=== PATIENT | female | born 1945 | race Caucasian/White ===

== ENCOUNTER 2023-09-23 13:21 | Outpatient (CLI) | payer MEDICARE, OTHER, SELFPAY | END 2023-09-23 13:22 | disposition home or self-care (01) | LOC: INJ CL 13:27 | PROVIDERS: PCP Internal Medicine; Visit Provider Family Medicine | DX: M54.16 Radiculopathy, lumbar region (principal); M51.36 Other intervertebral disc degeneration, lumbar region | CPT/HCPCS: 62323; J0702; Q9966 ==

== ENCOUNTER 2023-10-28 09:36 | Outpatient (CLI) | payer MEDICARE, OTHER, SELFPAY | END 2023-10-28 09:37 | disposition home or self-care (01) | LOC: INJ CL 09:37 | PROVIDERS: PCP Internal Medicine; Visit Provider Family Medicine | DX: M54.16 Radiculopathy, lumbar region (principal); M51.36 Other intervertebral disc degeneration, lumbar region | CPT/HCPCS: 64483; J1100; Q9966 ==

== ENCOUNTER 2023-11-28 08:01 | Outpatient (CLI) | payer MEDICARE, OTHER, SELFPAY | END 2023-11-28 08:02 | disposition home or self-care (01) | PROVIDERS: PCP Internal Medicine; Visit Provider Family Medicine | DX: M54.16 Radiculopathy, lumbar region (principal); M51.36 Other intervertebral disc degeneration, lumbar region | CPT/HCPCS: 64483; 64484; J1100; Q9966 ==